=== PATIENT | female | born 1995 | race Caucasian/White ===

== ENCOUNTER → 2019-01-22 10:51 | Outpatient (CLI) | payer SELFPAY | PROVIDERS: Visit Provider Obstetrics & Gynecology | DX: Z12.4 Encounter for screening for malignant neoplasm of cervix (principal) | CPT/HCPCS: 88175; G0145 ==

== ENCOUNTER → 2019-10-21 | Outpatient (CLI) | payer SELFPAY ==
[2019-10-21 16:10] LABS: hCG Titer Quant., Serum 29 mIU/mL (1-3)
[2019-10-21 16:25] LABS: Hematocrit 45.2 % (37-47); Mean Corp Hgb Conc 33.2 g/dL (32-36); Mean Corpuscular Hgb 29.8 pg (27.0-32.0); Mean Corpuscular Volume 89.7 fL (81-99); Platelet Count 235 K/mm3 (150-450); RBC Distribution Width CV 12.3 % (11.6-14.6); RBC Distribution Width SD 40.4 fl (35.1-43.9); Red Blood Count 5.04 M/mm3 (4.2-5.4); White Blood Count 7.7 K/mm3 (4.4-11.0)
== END | disposition home or self-care (01) ==
LOC: WOBLAB 13:47
PROVIDERS: Referring Provider Obstetrics & Gynecology; Visit Provider Obstetrics & Gynecology
DX: O20.0 Threatened abortion (principal)
CPT/HCPCS: 36415; 84702; 85027

== ENCOUNTER → 2020-11-06 11:19 | Outpatient (CLI) | payer SELFPAY ==
[2020-11-06 13:53] LABS: Estradiol 101.3 pg/mL
[2020-11-06 13:54] LABS: hCG Titer Quant., Serum 39 mIU/mL (1-3)
== END ==
PROVIDERS: Visit Provider Obstetrics & Gynecology
DX: N96 Recurrent pregnancy loss (principal); N91.2 Amenorrhea, unspecified
CPT/HCPCS: 36415; 82670; 84144; 84702

== ENCOUNTER 2021-07-24 09:30 | Outpatient (RCR) | payer SELFPAY | END 2021-07-26 23:59 | LOC: DC 09:30 | PROVIDERS: Visit Provider Obstetrics & Gynecology | DX: O24.410 Gestational diabetes mellitus in pregnancy, diet controlled (principal); Z3A.00 Weeks of gestation of pregnancy not specified | CPT/HCPCS: 97802 ==

== ENCOUNTER 2021-08-06 11:30 | Outpatient (RCR) | payer SELFPAY | END 2021-08-26 23:59 | LOC: DC 11:30 | PROVIDERS: Visit Provider Obstetrics & Gynecology | DX: O24.410 Gestational diabetes mellitus in pregnancy, diet controlled (principal); Z3A.00 Weeks of gestation of pregnancy not specified ==

== ENCOUNTER 2021-10-04 09:40 | Inpatient (IN) | payer SELFPAY ==
[2021-10-04] VITALS (46 sets, daily range): BP systolic 88–130; BP diastolic 51–86; PULSE 67–163; TEMP 36.6–37.3; O2SAT 80–100; BMI 23.8
[2021-10-04] MEDS: Lactated Ringers 1,000 ML 50 ML IV (10:00)
[2021-10-04 10:18] LABS: Absolute Lymphocyte Count 1.05 X10^3/uL (0.83-4.51); Absolute Neutrophil Count 6.5 X10^3/uL (2.0-7.7); Basophil# 0.01 X10^3/uL; Basophil% 0.1 % (0-1); Eosinophil# 0.02 X10^3/uL; Eosinophils% 0.2 % (0-5); Hematocrit 39.4 % (37-47); Hemoglobin 13.2 g/dL (12.0-15.0); Lymphocyte # 1.05 X10^3/ul (0.83-4.51); Mean Corp Hgb Conc 33.5 g/dL (32-36); Mean Corpuscular Hgb 29.3 pg (27.0-32.0); Mean Corpuscular Volume 87.4 fL (81-99); NRBC Flagged by Analyzer 0 % (0-5); Neutrophil # 6.53 X10^3/uL (2.7-7.7); Neutrophil % 81.2 % (47-70); Platelet Count 178 K/mm3 (150-450); RBC Distribution Width CV 14.3 % (11.6-14.6); RBC Distribution Width SD 45.7 fl (35.1-43.9); Red Blood Count 4.51 M/mm3 (4.2-5.4); White Blood Count 8.1 K/mm3 (4.4-11.0)
[2021-10-04] MEDS: Oxytocin 30 units/NS 500 ml 30 UNITS/500 ML IV.SOLN IV (10:50)
[2021-10-04 11:20] LABS: Bedside Glucose 94 mg/dL (70-110)
--- NOTE | 2021-10-04 13:23 | PCM.HP.OB ---
HPI - General General Date of Admission: 10/04/21 HPI Narrative KAMRON SAMS, is a 25 F at 40.6 weeks gestation who presents for elective induction of labor. complicated by GDM A1, and S<D= EFW 12%. Positive movement. Denies any loss of fluid or vaginal bleeding. Having occasional contractions since Friday. Maternal Data Information HONEY Calculator Estimated Delivery Date Method Current WG Current Estimate 09/28/21 Manual 40w 6d PFSH PFSH Medical History Gestational diabetes Infertility Medical History no medical history Home Medications DAILY 10/04/21 [History Last Taken 10/02/21 17:00 1 capsule] calcium 100 mg PO DAILY 10/04/21 [History Last Taken 10/03/21 17:00 1 capsule] Allergy/AdvReac Type Severity Reaction Status Date / Time No Known Allergies Allergy Verified 10/04/21 09:59 Family History no significant family his Surgical History [place] teeth extracted Surgical History no surgical history Social History Smoking Status: Never smoker History Elective abortions Hx Para 0 Spontaneous abortions Hx # Term Pregnancies Ectopic pregnancies Hx # Pregnancies Multiple births # of living children NST FHR Rate Baby A Baseline: 135 Variability:: Moderate Accelerations:: 15 x 15 Decelerations:: None NST Reactive:: Yes FHR Category:: Category I Uterine Activity:: Irregular ROS Eyes Eyes: Denies blurry vision, change in vision or spots in vision ENT HEENT: Denies dizziness or headache(s) Cardiovascular Cardiovascular: Denies abdominal pain, chest pain or dyspnea Respiratory/Chest Respiratory/Chest: Denies cough, dyspnea, shortness of breath at rest or shortness of breath with exertion Gastrointestinal Gastrointestinal: Denies abdominal pain, diarrhea or vomiting Genitourinary Genitourinary: Denies change in urinary stream, difficulty urinating or dysuria Musculoskeletal Musculoskeletal: Reports none Integumentary Integumentary: Denies rash Neurologic Neurologic: Denies dizziness, headache(s), memory loss or weakness Psychiatric Psychiatric: Reports none Vital Signs Vital Signs Vital Signs: 10/04/21 09:53 10/04/21 09:54 10/04/21 11:15 Temperature 98.4 F Temperature Source Temporal Pulse Rate 101 H 80 Blood Pressure 116/85 H BP Systolic 116 BP Diastolic 85 Pulse Ox 97 10/04/21 12:18 10/04/21 12:56 Temperature 98.1 F 98.3 F Temperature Source Temporal Temporal Pulse Rate 71 67 Blood Pressure 120/86 H 119/81 H BP Systolic 120 119 BP Diastolic 86 81 Pulse Ox 100 Weight Weight: 134 lb 7.712 oz Body Mass Index (BMI) 23.8 Physical Exam Const alert, oriented x3 and no apparent distress General Appearance: cooperative Orientation / Consciousness: awake Exam Limitations: no limitations HEENT normocephalic Head and Scalp: normal to inspection Eyes General Eye: normal appearance of both eyes Neck full ROM and no lymphadenopathy Lymph Lymphatic: no lymphadenopathy noted Chest inspection of chest normal Resp normal respiratory effort, normal air movement and clear to auscultation bilaterally Effort and Inspection: able to speak in complete sentences and symmetric chest movement Cardio regular rate and regular rhythm GI normal to inspection, nondistended, normoactive bowel sounds Manual OB Exam: presentation cephalic, dilated 4, effaced 60 and station -3 Amniotic Fluid: clear amniotic fluid Back/Spine normal ROM Extremity full ROM and no calf tenderness Skin no rashes or lesions noted General Skin Exam: no breakdown Neuro oriented x3 and CN's II-XII intact bilaterally Psych mental status grossly normal and thought process normal Labs Labs Labs: Blood Type A POSITIVE Antibody Screen NEGATIVE Hct 39.4 % (37-47) Hgb 13.2 g/dL (12.0-15.0) Rubella- immune RPR- NR HB- neg HC- neg HIV- NR GBS- neg Assessment & Plan (1) 40 weeks gestation of : (2) GDM (gestational diabetes mellitus), class A1: (3) Uterine size date discrepancy: QUALIFIERS: Trimester: unspecified trimester Qualified Code(s): O26.849 - Uterine size-date discrepancy, unspecified trimester (4) Encounter for induction of labor: PLAN: Admit to labor and delivery Routine labs Start IV and run fluids per policy Cat. 1 tracing CE- 4/60/-3 Start Pitocin IV at 2 mu/min and titrate per policy Diabetes protocol Patient desires to hold off on A.R.O.M and will reevaluate this evening Anticipate Dr. Perez notified and is collaborating physician
[2021-10-04 14:46] LABS: Bedside Glucose 95 mg/dL (70-110)
[2021-10-04] MEDS: Lactated Ringers 500 ML 999 ML IV ×2 (17:10→18:11)
--- NOTE | 2021-10-04 17:15 | PCM.PN.BLA ---
Progress Note Patient seen at bedside. Feeling pain and pressure with contractions. Requesting epidural anesthesia. Physical Exam Const alert and no apparent distress General Appearance: cooperative and comfortable Exam Limitations: no limitations HEENT normocephalic Eyes General Eye: normal appearance of both eyes Neck full ROM General: normal visual inspection Chest Chest: symmetrical chest wall rise Resp normal respiratory effort and normal air movement Effort and Inspection: symmetric chest movement Auscultation: clear to auscultation bilaterally Cardio regular rate and regular rhythm GI normal to inspection, nondistended, normoactive bowel sounds Back/Spine normal ROM Extremity full ROM and no calf tenderness General Extremity: normal exam except as noted Skin no rashes or lesions noted Neuro CN's II-XII intact bilaterally Psych mental status grossly normal Assessment & Plan Assessment/Plan (1) Encounter for induction of labor: (2) 40 weeks gestation of : PLAN: A.R.O.M for moderate amount of clear fluid Nitrous oxide currently for pain control Anesthesia notified of desire for epidural Cat. 1 tracing NST reactive Continue pitocin IV and titrate per policy Anticipate
[2021-10-04] MEDS: fentaNYL-bupivacaine (epidural) 100 ML BAG EPIDURAL (17:59)
[2021-10-04 18:10] LABS: Bedside Glucose 113 mg/dL (70-110)
[2021-10-04 18:10] LABS: Bedside Glucose 86 mg/dL (70-110)
[2021-10-04 18:40] LABS: Bedside Glucose 106 mg/dL (70-110)
[2021-10-04] MEDS: 0.9% Normal Saline 100 ML IV.SOLN. 300 ML INTRA-UTER (19:27)
[2021-10-04] MEDS: Lactated Ringers 1,000 ML 200 ML IV (19:42)
[2021-10-04 19:45] LABS: Bedside Glucose 102 mg/dL (70-110)
[2021-10-04 20:36] LABS: Bedside Glucose 96 mg/dL (70-110)
[2021-10-04 21:41] LABS: Bedside Glucose 94 mg/dL (70-110)
[2021-10-04] MEDS: Mag Hydrox/Al Hydrox/Simeth 30 ML UDC PO (22:15)
[2021-10-04 22:55] LABS: Bedside Glucose 95 mg/dL (70-110)
[2021-10-05] VITALS (37 sets, daily range): BP systolic 108–164; BP diastolic 70–101; PULSE 77–143; RESP 16–18; TEMP 36.6–37.2; O2SAT 82–100
[2021-10-05 00:15] LABS: Bedside Glucose 98 mg/dL (70-110)
[2021-10-05] MEDS: Lactated Ringers 1,000 ML 200 ML IV (00:30)
--- NOTE | 2021-10-05 00:33 | NURSING ---
HR and spo2 re checked 2352 HR 79, SPO2 99%
[2021-10-05 01:06] LABS: Bedside Glucose 99 mg/dL (70-110)
[2021-10-05 02:16] LABS: Bedside Glucose 102 mg/dL (70-110)
--- NOTE | 2021-10-05 02:25 | PCM.PN.BLA ---
Progress Note Patient complete dilation since 2204. Pushing with contractions. Physical Exam Const alert and no apparent distress General Appearance: cooperative and comfortable Exam Limitations: no limitations HEENT normocephalic Eyes General Eye: normal appearance of both eyes Neck full ROM General: normal visual inspection Chest Chest: symmetrical chest wall rise Resp normal respiratory effort and normal air movement Effort and Inspection: symmetric chest movement Auscultation: clear to auscultation bilaterally Cardio regular rate and regular rhythm GI normal to inspection, nondistended, normoactive bowel sounds Back/Spine normal ROM Extremity full ROM and no calf tenderness General Extremity: normal exam except as noted Skin no rashes or lesions noted Neuro CN's II-XII intact bilaterally Psych mental status grossly normal Assessment & Plan Assessment/Plan (1) 40 weeks gestation of : (2) GDM (gestational diabetes mellitus), class A1: PLAN: Patient pushing for almost 3 hours with slight descent and caput present Dr. Perez updated in route to evaluate patient Comfortable with epidural anesthesia Anticipate
[2021-10-05] MEDS: Oxytocin 30 units/NS 500 ml 30 UNITS/500 ML IV.SOLN 334 UNITS IV (03:01)
--- NOTE | 2021-10-05 03:22 | OP.PCM_ITS ---
Maternal Data Information HONEY Calculator Estimated Delivery Date Method Current WG Current Estimate 09/28/21 Manual 41w 0d Vaginal Delivery Maternal Presentation Maternal Presentation: Medically Indicated Induction Type of Induction: Pitocin and Amniotomy Medical Reason for Induction: - (GDMA1) Operative Information Date of Procedure: 10/05/21 Pre-Operative Diagnosis: 41 weeks gestation, GDMA1 Post-Operative Diagnosis: same Surgery / Procedure Performed: Vacuum Assisted Vaginal Delivery Type of Anesthesia: Epidural Drain: Lopez to straight drain Estimated Blood Loss: 300 Time of Delivery: 03:00 Findings Description of Procedure: Was called to evaluate patient. Pushing for 3 hours. Upon my arrival caput noted. [place] like was in the CHRISSY position. Patient and were counseled on use of vacuum for delivery assistance. They were counseled on the risks of vacuum including but not limited to vaginal lacerations, scalp lacerations, brain bleeds. They agreed to proceed at this time. At this time extra staff was called to the room including ion implant machine operator. Lopez was draining. Epidural was adequate. head was +3 station. At this time vacuum was applied to the flexion point suction created into the green zone. At this time with good maternal pushing efforts and traction the 's head was brought to the perineum. 1 pop-off. At this time the vacuum was not used again and with good maternal pushing efforts she delivered head followed by the rest infant's body without complication. The was placed on the mother's chest. The cord was clamped and cut and infant was taken to the [facility] for evaluation. Placenta was delivered intact without complication. Second-degree vaginal laceration was appreciated. It was repaired with 2-0 Vicryl. Presentation: Vertex Amniotic Fluid Description: Clear Placental Delivery Description: Expressed Placenta Disposition: [facility] Specimen(s) Removed: placenta Cord Vessel Description: 3 Vessels Cord Entanglement: None Infant A Gender: Male (1 minute): 7 (5 minute): 9 Delayed Cord Clamping: No Post Vaginal Delivery Medications Given After Delivery: IV Pitocin Episiotomy Description: None Laceration: Vaginal Extension/lac (Repaired with 2-0 vicryl ) and 2nd degree Complication Complications: None
[2021-10-05] MEDS: Naproxen 500 MG Tablet PO ×2 (05:21→21:17)
[2021-10-05] MEDS: 0.9% Saline Lock 10 ML Syringe IV (05:44)
[2021-10-05 05:51] LABS: Bedside Glucose 123 mg/dL (70-110)
--- NOTE | 2021-10-05 06:28 | NURSING ---
pt ate a flavored ice and rice prior to 0455 POC BGT
[2021-10-05] MEDS: Acetaminophen 500 MG Tablet 1000 MG PO (09:23)
[2021-10-06 01:18] VITALS: BP 116/75; PULSE 73; RESP 18
[2021-10-06 05:51] LABS: Bedside Glucose 79 mg/dL (70-110)
[2021-10-06 06:05] VITALS: BP 104/66; PULSE 87; RESP 18
[2021-10-06 08:30] VITALS: BP 123/94; PULSE 89; RESP 14; TEMP 36.9
--- NOTE | 2021-10-06 09:15 | PCM.PN.OB ---
Subjective Subjective Pain well controlled. Average lochia. Objective Data Objective Data Vital Signs: Vital Signs Temp Pulse Resp BP Pulse Ox 98.4 F 89 14 123/94 H 82 10/06/21 08:30 10/06/21 08:30 10/06/21 08:30 10/06/21 08:30 10/05/21 16:12 Oxygen Delivery Method Room Air Weight: 61 kg Body Mass Index (BMI) 23.8 Intake & Output: Intake and Output for Last 24 Hours 10/04/21 10/05/21 10/06/21 23:59 23:59 23:59 Intake Total 2113.97 / 2113.97 2442.43 / 2442.43 Output Total 400 / 400 700 / 1900 1200 / 1200 Balance 1713.97 / 1713.97 1742.43 / 542.43 -1200 / -1200 Lab / Micro Data Result Diagrams: 10/04/21 10:00 Labs: Laboratory Results - last 24 hr 10/06/21 04:32: POC Glucose 79 Micro: Microbiology 10/04/21 10:30 Nasal Secretion SARS-CoV-2 Antigen (Rapid) - Final Physical Exam Const alert and no apparent distress Narrative: Fundus firm, below umbilicus. Assessment & Plan (1) Vacuum extraction, delivered, current hospitalization: PLAN: day #1 status post vaginal assisted vacuum delivery. is breast-feeding and doing well. Patient desires discharge home today.
--- NOTE | 2021-10-06 09:17 | DS.PCM_ITS ---
Providers Date of Admission: 10/04/21 Primary Care Physician: MASOUD Garcia Reason For Visit: VAGINAL DELIVERY Diagnosis Discharge Diagnosis (1) Vacuum extraction, delivered, current hospitalization: Status: Acute Code(s): O75.9 - Complication of labor and delivery, unspecified Medications at Discharge Home Medications DAILY 10/04/21 calcium 100 mg PO DAILY 10/04/21 Hospital Course Operations - (Vacuum-assisted vaginal delivery on 10/05/2021.) Procedures None Summary of Care Provided Hospital Course: 25-year-old nulliparous patient admitted for induction of labor due to gestational diabetes. She progressed to complete and was pushing for approximately 3 hours. She had arrest of descent. A vacuum-assisted vaginal delivery was performed. By day #1 the patient was ambulating, urinating tolerating regular diet. Infant was breast-feeding. Patient desired to discharge home with routine instructions and prescriptions. Weight / BMI Weight Weight: 61 kg Body Mass Index (BMI) 23.8 ABG / Lab / Microbiology Data Result Diagrams: 10/04/21 10:00 Laboratory: Laboratory Results - last 24 hr 10/06/21 04:32: POC Glucose 79 Microbiology: Microbiology 10/04/21 10:30 Nasal Secretion SARS-CoV-2 Antigen (Rapid) - Final D/C Instructions May resume sexual activity in: 6 weeks Please Follow Up With: Kaia Cortez MD When: Follow up with our office in 1-2 and 6 weeks or as needed. [phone] Meaningful Use Info Meaningful Use Diagnoses (Choose all that apply): None applicable Discharge Plan Admission Admit Date/Time: 10/04/21 09:40 Primary Reason for Your Visit: Labor and delivery Attending Provider: Jazz Rodriguez Primary Care Provider: Catalina Gallardo NP Discharge Orders/Prescriptions Prescriptions: No Action calcium 100 mg Capsule 100 mg PO DAILY RF: 0 DAILY RF: 0 Referrals / Follow Up: Catalina Gallardo NP, [employer] [Primary Care Provider] - Disposition Disposition (needs filled in before D/C Order can be placed): Home, Self Care
== END 2021-10-06 11:35 | disposition home or self-care (01) | DRG 807 ==
PROVIDERS: Advanced Practice Midwife; Admitting Provider Obstetrics & Gynecology; PCP Nurse Practitioner Family; Visit Provider Obstetrics & Gynecology
DX: O62.1 Secondary uterine inertia (principal); Z37.0 Single live birth; O24.420 Gestational diabetes mellitus in childbirth, diet controlled; Z3A.41 41 weeks gestation of pregnancy; O70.1 Second degree perineal laceration during delivery
CPT/HCPCS: 59025; 59050; 82962; 85025; 86850; 86900; 86901; 87426; 99218; J7120; A4216; G0378

== ENCOUNTER 2023-01-20 08:25 | Inpatient (IN) | payer SELFPAY ==
[2023-01-20] VITALS (10 sets, daily range): BP systolic 105–126; BP diastolic 66–84; PULSE 74–100; RESP 15–16; TEMP 36.1–37.2; O2SAT 95–98; BMI 24.6
[2023-01-20] MEDS: Oxytocin 10 UNITS/ML Vial IM (08:45)
--- NOTE | 2023-01-20 08:50 | OP.PCM_ITS ---
Assessment & Plan (1) Vaginal delivery: (2) First degree perineal laceration: (3) Precipitate labor: Maternal Data Information HONEY Calculator Estimated Delivery Date Method Current WG Current Estimate 01/13/23 Manual 41w 0d Vaginal Delivery Maternal Presentation Maternal Presentation: Active Labor and Spontaneous Rupture of Membranes Operative Information Date of Procedure: 01/20/23 Pre-Operative Diagnosis: Active Labor Post-Operative Diagnosis: , precipitous , first degree perineal laceration Surgery / Procedure Performed: Spontaneous Vaginal Delivery Type of Anesthesia: None Estimated Blood Loss: 450ml Time of Delivery: 08:37 Findings Description of Procedure: Arrived at 9cm and progressed to complete with urge to push. Unmedicated. Progressed to complete dilation. I was called enroute to hospital and notified of patient arrival and need for delivery. Upon arrival on maternal abdomen, strong cry. of viable male infant over first degree perineal laceration. APGARS 8,9 respectively. head delivered with body delayed by DHIRAJ Weaver. Head delivered and body not immediatly forthcoming, Ruby, suprapubic pressure, anterior arm removal by DHIRAJ Sweeney.Placed on maternal abdomen, strong cry. Mouth and nares suctioned for secretions. Pitocin given for active 3rd stage freddy gement IM. Cord doubly clamped and cut by FOB after pulsations ceased, delayed cord clamping. Placenta delivered intact via loreto, 3 vessel cord intact. Perineum inspected and revealed first degree perineal laceration. Repaired with 3.0 vicryl rapide in one figure of eight stitch. Fundus firm and hemostasis achieved. EBL 450 ml. Mom and baby stable, planning to breastfeed. Family bonding well. Dr. Perez notified of delivery. 27 seconds, Presentation: Vertex Amniotic Membrane Rupture Type: Spontaneous Amniotic Fluid Description: Clear Placental Delivery Description: Spontaneous Placenta Disposition: [facility] Cord Vessel Description: 3 Vessels Cord Entanglement: None Infant A Gender: Male (1 minute): 8 (5 minute): 9 Delayed Cord Clamping: Yes Post Vaginal Delivery Medications Given After Delivery: - (IM pitocin) Episiotomy Description: None Laceration: 1st degree Complication Complications: None
[2023-01-20] MEDS: Acetaminophen 500 MG Tablet 1000 MG PO ×2 (11:13→20:16)
[2023-01-20 11:16] LABS: Absolute Lymphocyte Count 0.59 X10^3/uL (0.83-4.51); Absolute Neutrophil Count 15.7 X10^3/uL (2.0-7.7); Basophil# 0.03 X10^3/uL; Basophil% 0.2 % (0-1); Eosinophil# 0.33 X10^3/uL; Eosinophils% 1.9 % (0-5); Hematocrit 36.1 % (37-47); Hemoglobin 11.5 g/dL (12.0-15.0); Lymphocyte # 0.59 X10^3/ul (0.83-4.51); Lymphocyte % 3.4 % (19-41); Mean Corp Hgb Conc 31.9 g/dL (32-36); Mean Corpuscular Hgb 28.1 pg (27.0-32.0); Mean Corpuscular Volume 88.3 fL (81-99); Mean Platelet Vol. 11.6 fl (6.2-12.0); NRBC Flagged by Analyzer 0 % (0-5); Neutrophil # 15.67 X10^3/uL (2.7-7.7); Neutrophil % 89.8 % (47-70); POSITIVE DIFFERENTIAL YES; Platelet Count 148 K/mm3 (150-450); RBC Distribution Width CV 14.2 % (11.6-14.6); RBC Distribution Width SD 45.2 fl (35.1-43.9); Red Blood Count 4.09 M/mm3 (4.2-5.4); White Blood Count 17.4 K/mm3 (4.4-11.0)
[2023-01-20 11:17] LABS: Differential Indicated SCAN CRITERIA MET
[2023-01-20 11:43] LABS: Differential Comment SCANNED
[2023-01-20 11:59] LABS: Syphilis Antibodies Non-reactive
--- NOTE | 2023-01-20 15:47 | HP.PCM.OB_ITS ---
HPI - General General Date of Admission: 01/20/23 HPI Narrative KAMRON SAMS, is a 27 F who presents in active labor at 41 weeks . Maternal Data Information HONEY Calculator Estimated Delivery Date Method Current WG Current Estimate 01/13/23 Manual 41w 0d Final HONEY: 01/13/23 PFSH PFSH Medical History Gestational diabetes Infertility Medical History no medical history Home Medications DAILY 10/04/21 [History Last Taken 10/02/21 17:00 1 capsule] calcium 100 mg capsule 100 mg PO DAILY 10/04/21 [History Last Taken 01/19/23] Allergy/AdvReac Type Severity Reaction Status Date / Time No Known Allergies Allergy Verified 10/04/21 09:59 Family History no significant family his Surgical History [place] teeth extracted Surgical History no surgical history Social History Smoking Status: Never smoker History Elective abortions Hx Para 1 Spontaneous abortions Hx # Term Pregnancies Ectopic pregnancies Hx # Pregnancies Multiple births # of living children Visit Details OB Flowsheet Initial Weight: Not Recorded Date -?-?-?-?-?-?-?-?-?-?-?-?- EGA Weight BP Urine Prot -?-?-?-?-?-?-?-?-?-?-?-?- Glucose FHR FuHt Pres Dilation -?-?-?-?-?-?-?-?-?-?-?-?- Effaced St Visit Note 01/20/23 -?-?-?-?-?-?-?-?-?-?-?-?- 41w 0d 139 lb 118/69 116/72 126/79 125/77 124/77 108/79 111/76 -?-?-?-?-?-?-?-?-?-?-?-?- -?-?-?-?-?-?-?-?-?-?-?-?- Vital Signs Vital Signs Vital Signs: 01/20/23 09:05 01/20/23 09:05 01/20/23 09:20 Temperature Temperature Source Pulse Rate 99 Blood Pressure 118/69 116/72 BP Systolic 118 116 BP Diastolic 69 72 01/20/23 09:20 01/20/23 09:35 01/20/23 09:35 Temperature Temperature Source Pulse Rate 88 78 Blood Pressure 126/79 H BP Systolic 126 BP Diastolic 79 01/20/23 09:50 01/20/23 09:50 01/20/23 10:05 Temperature Temperature Source Pulse Rate 74 Blood Pressure 125/77 H 124/77 H BP Systolic 125 124 BP Diastolic 77 77 01/20/23 10:05 01/20/23 10:20 01/20/23 10:20 Temperature Temperature Source Pulse Rate 100 99 Blood Pressure 108/79 BP Systolic 108 BP Diastolic 79 01/20/23 10:35 01/20/23 10:35 01/20/23 09:50 Temperature Temperature Source Tympanic Pulse Rate 78 Blood Pressure 111/76 BP Systolic 111 BP Diastolic 76 01/20/23 09:50 01/20/23 10:35 01/20/23 10:35 Temperature 98.9 F 99.0 F Temperature Source Tympanic Pulse Rate Blood Pressure BP Systolic BP Diastolic Weight Weight: 139 lb Body Mass Index (BMI) 24.6 Physical Exam Const alert and oriented x3 General Appearance: cooperative HEENT normocephalic Labs Labs Labs: Blood Type A POSITIVE Antibody Screen NEGATIVE Hct 36.1 % (37-47) L Hgb 11.5 g/dL (12.0-15.0) L Syphilis Total Ab Non-reactive GBS negative RPR negative 1hr 143, 3hr nml A positive GC/CT negative Assessment & Plan (1) History of vacuum extraction assisted delivery: (2) Active labor at term: (3) 41 weeks gestation of : (4) Short interval between pregnancies affecting , antepartum: PLAN: Plan 1) Admit to labor and delivery 2) Routine labs 3) GBS negative 4) collabortive physician.
[2023-01-21] MEDS: Acetaminophen 500 MG Tablet 1000 MG PO (03:27)
[2023-01-21 03:30] VITALS: BP 114/83; PULSE 84; RESP 18; TEMP 36.6; O2SAT 95
[2023-01-21] MEDS: Ibuprofen 600 MG Tablet PO (07:41)
[2023-01-21 08:04] VITALS: BP 120/87; PULSE 86; RESP 16; TEMP 36.9
--- NOTE | 2023-01-21 08:53 | PCM.PN.OB ---
Subjective Subjective Denies complaints Objective Data Objective Data Vital Signs: Vital Signs Temp Pulse Resp BP Pulse Ox O2 Del Method 98.4 F 86 16 120/87 H 95 Room Air 01/21/23 08:04 01/21/23 08:04 01/21/23 08:04 01/21/23 08:04 01/21/23 03:30 01/21/23 03:30 Oxygen Delivery Method Room Air Weight: 139 lb Body Mass Index (BMI) 24.6 Intake & Output: Intake and Output for Last 24 Hours 01/19/23 01/20/23 01/21/23 23:59 23:59 23:59 Output Total 450 / 450 Balance -450 / -450 Lab / Micro Data Result Diagrams: 01/20/23 11:00 Labs: Laboratory Results - last 24 hr 01/20/23 11:00: WBC 17.4 H, RBC 4.09 L, Hgb 11.5 L, Hct 36.1 L, MCV 88.3, MCH 28.1, MCHC 31.9 L, RDW Std Deviation 45.2 H, RDW Coeff of Sylvia 14.2, Plt Count 148 L, MPV 11.6, Immature Gran % (Auto) 0.700, Neut % (Auto) 89.8 H, Lymph % (Auto) 3.4 L, [place] % (Auto) 4.0, Eos % (Auto) 1.9, Baso % (Auto) 0.2, Absolute Neuts (auto) 15.7 H, Absolute Lymphs (auto) 0.59 L, Nucleated RBC % 0, Differential Comment SCANNED 01/20/23 11:00: Blood Type A POSITIVE, Antibody Screen NEGATIVE 01/20/23 11:00: Syphilis Total Ab Non-reactive Physical Exam Const alert, oriented x3 and no apparent distress HEENT normocephalic GI soft to palpation, non-tender and non-distended GI Narrative: fundus firm, mid & below umbilicus Extremity normal to inspection and no calf tenderness Assessment & Plan (1) Vaginal delivery: COMMENT: PPD#1 PLAN: D/c home per patient request
--- NOTE | 2023-01-21 08:54 | PCM.DC ---
Discharge Instructions Diet Discharge Diet: No restrictions Activity Discharge Activity: May Shower May resume sexual activity in: 6 weeks Weight Bearing Status: Weight bearing as tolerated Dressing / Incision Call your doctor if you observe: Fever of 101 or Higher, Coldness, Increased Pain, Change in Color, Inability to urinate, Inability to have a bowel movement, Using more than 1 pad per hour, Shortness of breath, Dizziness, Fainting spells, Chest pain, Increased palpitations (irregular heartbeat), Calf discomfort and Uncontrolled pain Remove Dressing in: 1 week Follow Up Care Please Follow Up With: Poly Khanna CNM When: Follow up in 2 and 6 weeks for visits. Test Results: Test results from this visit will be discussed in further detail at your follow-up appointment, if applicable. Discharge Plan Admission Admit Date/Time: 01/20/23 08:25 Primary Reason for Your Visit: vaginal delivery Attending Provider: Poly Khanna Primary Care Provider: Catalina Gallardo NP Discharge Orders/Prescriptions Prescriptions: New acetaminophen 500 mg Tablet 1,000 mg PO Q6H PRN PRN (Reason: Pain 1-10 Or Fever) Qty: 0 0RF ibuprofen 600 mg Tablet 600 mg PO Q6H PRN PRN (Reason: Pain Score 1-3) Qty: 0 0RF Continued calcium 100 mg Capsule 100 mg PO DAILY DAILY Referrals / Follow Up: Catalina Gallardo NP, [employer] [Primary Care Provider] - Disposition Disposition (needs filled in before D/C Order can be placed): Home, Self Care
== END 2023-01-21 11:55 | disposition home or self-care (01) | DRG 807 ==
LOC: WP 08:46 → WPOUT 01-22 09:18
PROVIDERS: Admitting Provider Advanced Practice Midwife; PCP Nurse Practitioner Family; Referring Provider Advanced Practice Midwife; Visit Provider Advanced Practice Midwife
DX: O62.3 Precipitate labor (principal); Z37.0 Single live birth; O48.0 Post-term pregnancy; O70.0 First degree perineal laceration during delivery; Z3A.41 41 weeks gestation of pregnancy; Z86.32 Personal history of gestational diabetes
CPT/HCPCS: 59050; 85025; 86780; 86850; 86900; 86901; 99221; G0378